=== PATIENT | male | born 1950 | race Caucasian/White ===

== ENCOUNTER → 2018-03-03 09:55 | Outpatient (CLI) | payer MEDICARE, OTHER, SELFPAY | PROVIDERS: PCP Nurse Practitioner; Visit Provider Nurse Practitioner | DX: Z80.42 Family history of malignant neoplasm of prostate (principal); Z53.20 Procedure and treatment not carried out because of patient's decision for unspecified reasons | CPT/HCPCS: 36415; 84153 ==

== ENCOUNTER → 2018-03-18 08:37 | Outpatient (CLI) | payer MEDICARE, OTHER, SELFPAY | PROVIDERS: PCP Nurse Practitioner; Visit Provider Nurse Practitioner | DX: Z12.5 Encounter for screening for malignant neoplasm of prostate (principal); Z53.8 Procedure and treatment not carried out for other reasons | CPT/HCPCS: 36415; 84153 ==

== ENCOUNTER 2018-05-12 01:14 | Outpatient (CLI) | payer MEDICARE, OTHER, SELFPAY ==
[2018-05-13 09:36] LABS: PSA, Screening 2.1 ng/ml (0-4.5)
== END 2018-05-12 01:34 ==
PROVIDERS: PCP Nurse Practitioner; Visit Provider Nurse Practitioner
DX: N40.1 Benign prostatic hyperplasia with lower urinary tract symptoms (principal); N13.8 Other obstructive and reflux uropathy; Z80.42 Family history of malignant neoplasm of prostate; Z12.5 Encounter for screening for malignant neoplasm of prostate
CPT/HCPCS: 36415; 84153

== ENCOUNTER → 2018-12-24 09:24 | Outpatient (BNVA) | payer MEDICARE, OTHER, SELFPAY | PROVIDERS: PCP Nurse Practitioner; Visit Provider Urology | DX: N40.1 Benign prostatic hyperplasia with lower urinary tract symptoms (principal); N13.8 Other obstructive and reflux uropathy | CPT/HCPCS: 99213 ==

== ENCOUNTER 2019-01-06 01:09 | Outpatient (CLI) | payer MEDICARE, OTHER, SELFPAY ==
[2019-01-06 08:53] LABS: HCT 45.7 % (40.0-50.0); HGB 15.6 g/dL (13.5-17.5); Mean Corp. HGB Concentration 34.1 g/dL (32.0-36.0); Mean Corpuscular Hemoglobin 29.9 pg (27.0-33.0); Mean Corpuscular Volume 87.5 fL (80-95); Mean Platelet Volume 9.6 fL (8.0-11.0); Platelet Count 232 x1000/uL (130-400); RBC 5.22 m/cumm (4.50-6.00); RBC Distribution Width 12.9 % (11.8-14.1); White Blood Cell Count 5.23 k/cumm (4.4-10.8)
[2019-01-06 09:48] LABS: ALT 41 U/L (12-78); AST 28 U/L (15-37); Albumin 3.8 g/dL (3.4-5.0); Alkaline Phosphatase 78 U/L (46-116); BUN 22 mg/dL (7-18); Bilirubin, Total 0.8 mg/dL (0.2-1.0); CREATININE 1.03 mg/dL (0.70-1.30); Calcium 8.4 mg/dL (8.5-10.1); Calculated LDL 115; Chloride 104 mmol/L (98-107); Cholesterol 179 mg/dL (50-200); Glucose 91 mg/dL (70-100); HDL Cholesterol 50 mg/dL (40-60); Potassium 4.7 mmol/L (3.5-5.1); Sodium 140 mmol/L (136-145); Total Protein 6.5 g/dL (6.4-8.2); Triglyceride 73 mg/dL (30-150)
[2019-01-07 06:51] LABS: Vitamin D 25 Total 28.9 ng/ml (30-100)
== END 2019-01-06 01:29 ==
PROVIDERS: PCP Nurse Practitioner; Visit Provider Nurse Practitioner
DX: E78.5 Hyperlipidemia, unspecified (principal); K59.00 Constipation, unspecified; R53.83 Other fatigue; M27.9 Disease of jaws, unspecified; M85.80 Other specified disorders of bone density and structure, unspecified site; E55.9 Vitamin D deficiency, unspecified
CPT/HCPCS: 36415; 80053; 80061; 82306; 83721; 85027

== ENCOUNTER 2019-02-04 12:08 | Outpatient (CLI) | payer MEDICARE, OTHER, SELFPAY ==
--- NOTE | 2019-02-04 09:00 | DI.RAD_ITS ---
SYMPTOM/DIAGNOSIS: BILATERAL RIB PAIN, DROPPED WEIGHT BAR ON CHEST R07.81, PLEURODYNIA PA AND LATERAL CHEST, BILATERAL RIBS: There is no evidence of a pneumothorax or pleural effusion. The lungs are well expanded and free of infiltrate. The cardiovascular structures are intact. SUMMARY: Normal chest BILATERAL RIB SERIES: There is no demonstrated right or left rib fracture.
== END 2019-02-04 12:28 ==
PROVIDERS: PCP Nurse Practitioner; Visit Provider Nurse Practitioner
DX: R07.81 Pleurodynia (principal)
CPT/HCPCS: 71046; 71110

== ENCOUNTER 2020-01-17 03:30 | Outpatient (CLI) | payer MEDICARE, OTHER, SELFPAY ==
[2020-01-17 09:56] LABS: ALT 46 U/L (16-63); AST 26 U/L (15-37); Albumin 3.9 g/dL (3.4-5.0); Alkaline Phosphatase 65 U/L (46-116); Anion Gap 7.1 mmol/L (3-11); BUN 19 mg/dL (7-18); Bilirubin, Total 0.7 mg/dL (0.2-1.0); CO2 27.9 mmol/L (21.0-32.0); CREATININE 1.13 mg/dL (0.70-1.30); Calcium 8.8 mg/dL (8.5-10.1); Calculated LDL 119 mg/dL (<100); Chloride 105 mmol/L (98-107); Cholesterol 183 mg/dL (<200); Glucose 91 mg/dL (74-106); HDL Cholesterol 52 mg/dL (40-60); Potassium 4.8 mmol/L (3.5-5.1); Sodium 140 mmol/L (136-145); Total Protein 6.5 g/dL (6.4-8.2); Triglyceride 64 mg/dL (<150)
== END 2020-01-17 03:50 ==
PROVIDERS: PCP Nurse Practitioner; Visit Provider Nurse Practitioner
DX: E78.5 Hyperlipidemia, unspecified (principal)
CPT/HCPCS: 36415; 80053; 80061

== ENCOUNTER → 2020-02-08 13:51 | Outpatient (BNVA) | payer MEDICARE, OTHER, SELFPAY | PROVIDERS: PCP Nurse Practitioner; Referring Provider Nurse Practitioner; Visit Provider Internal Medicine Cardiovascular Disease | DX: I49.3 Ventricular premature depolarization (principal) | CPT/HCPCS: 99204; 99215 ==

== ENCOUNTER 2020-02-09 02:41 | Outpatient (CLI) | payer MEDICARE, OTHER, SELFPAY ==
--- NOTE | 2020-02-09 07:00 | DI.MRI_ITS ---
EXAM: MR LUMBAR SPINE WO CLINICAL HISTORY: LBP, R sciatica, tingling RLE,M54.5,M54.31,M25.50,R53.83,Z83.2. TECHNIQUE: Multiplanar multisequence MRI of the Lumbar spine was performed. COMPARISON: US ABDOMEN ULTRASOUND (P) from 10/16/2017 FINDINGS: Bones: The last intervertebral disc space is designated the L5/S1 level for the numbering purpose of this examination. The vertebral body heights are well maintained. Alignment is satisfactory. Mild d egenerative endplate signal changes at L1-L2, L2-L3 and L4-L5. Small endplate osteophytes at L1-L2. Cord: The conus tip ends at the L1 level. It is of normal size and signal intensity. T12-L1: No disc herniations or bulges are present. No central spinal canal or neural foraminal stenos is. L1-2: Mild diffuse disc bulge. No significant central spinal canal or neural foraminal stenosis. L2-3: Mild diffuse disc bulge. No significant central spinal canal or neural foraminal stenosis. L3-4: No disc herniations or bulges are present. No central spinal canal or neural foraminal stenosis . L4-5: No disc herniations or bulges are present. No central spinal canal or neural foraminal stenosis . L5-S1: No disc herniations or bulges are present. No central spinal canal or neural foraminal stenosi s. Soft tissues: The visualized SI joints and sacrum are well maintained. The paraspinal soft tissues ar e unremarkable. There are several bilateral simple renal cysts. These were present on the abdominal ultrasound from 10/16/2016. IMPRESSION: 1. Mild degenerative changes in the lumbar spine. No significant central spinal canal or neural fora daniel stenosis. 2. Bilateral simple renal cysts. DATA REPOSITORY:
== END 2020-02-09 03:01 ==
PROVIDERS: PCP Nurse Practitioner; Visit Provider Nurse Practitioner
DX: M25.50 Pain in unspecified joint (principal); M54.31 Sciatica, right side; M54.5 Low back pain; R53.83 Other fatigue; Z83.2 Family history of diseases of the blood and blood-forming organs and certain disorders involving the immune mechanism; M47.816 Spondylosis without myelopathy or radiculopathy, lumbar region; N28.1 Cyst of kidney, acquired
CPT/HCPCS: 72148

== ENCOUNTER → 2020-03-13 09:39 | Outpatient (CLI) | payer MEDICARE, OTHER, SELFPAY ==
--- NOTE | 2020-03-13 08:45 | DI.RAD_ITS ---
EXAM: XR SHOULDER RT COMPLETE 2+V CLINICAL HISTORY: R shoulder pain, anterior, +impingement TECHNIQUE: COMPARISON: No exams were available for comparison FINDINGS: Three views were obtained. There are mild hypertrophic degenerative changes of the acromioclavicular joint and mild marginal osteophytes are also noted at the glenohumeral joint. There is soft tissue calcification which appears to be associated with the insertion of the supraspin atus tendon on the humerus, consistent with a calcific peritendinitis. No other significant findings. 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 RADIATION DOSE DELIVERED: Total DLP
== END ==
PROVIDERS: PCP Nurse Practitioner; Referring Provider Nurse Practitioner; Visit Provider Student in an Organized Health Care Education/Training Program
DX: M19.011 Primary osteoarthritis, right shoulder (principal); M77.9 Enthesopathy, unspecified; S43.431A Superior glenoid labrum lesion of right shoulder, initial encounter; X58.XXXA Exposure to other specified factors, initial encounter; M25.511 Pain in right shoulder; M75.41 Impingement syndrome of right shoulder
CPT/HCPCS: 99203; 99214; 73030

== ENCOUNTER 2020-03-14 01:02 | Outpatient (CLI) | payer MEDICARE, OTHER, SELFPAY ==
--- NOTE | 2020-03-14 06:30 | DI.US_ITS ---
APPROVED REPORT EXAM: Comprehensive 2D, Doppler, and color-flow Echocardiogram Patient Location: Out-Patient Title I Math Tutor: Jacy Avila RDCS (AE) Indications: PVC Other Information Study Quality: Good Conclusion Left Ventricle : The left ventricle is normal size. The left ventricular systolic function is normal. The left ventricular ejection fraction is within the normal range. There is normal left ventricular wall thickness. There is normal LV segmental wall motion. The left ventricular diastolic function is normal. LVEF is 63%. Right Ventricle : The right ventricle is normal size. The right ventricular systolic function is norm al. The RVSP is 33.0 mmHg. Atria : The left atrium size is normal. The right atrium size is normal. Mitral Valve : The mitral valve is normal in structure. No evidence of mitral valve stenosis. Mild mi tral regurgitation. Tricuspid Valve : The tricuspid valve is normal in structure. Mild to moderate tricuspid regurgitatio n. There is no tricuspid valve stenosis. Great Vessels : The aortic root is normal in size. The ascending aorta is mildly dilated. Aortic arch is normal in caliber. IVC is normal in size and collapses >50% with inspiration. Wall motion Left Ventricle The left ventricle is normal size. The left ventricular systolic function is normal. The left ventric ular ejection fraction is within the normal range. There is normal left ventricular wall thickness. T here is normal LV segmental wall motion. The left ventricular diastolic function is normal. There is no ventricular septal defect visualized. LVEF is 63%. Right Ventricle The right ventricle is normal size. The right ventricular systolic function is normal. The RVSP is 33 .0 mmHg. Atria The left atrium size is normal. The right atrium size is normal. The interatrial septum is intact wit h no evidence for an atrial septal defect. Aortic Valve The Aortic valve is sclerotic. Aortic valve is trileaflet. There is no aortic valvular stenosis. No a ortic regurgitation is present. Mitral Valve The mitral valve is normal in structure. No evidence of mitral valve stenosis. Mild mitral regurgitat ion. Tricuspid Valve The tricuspid valve is normal in structure. There is no tricuspid valve stenosis. Mild to moderate tr icuspid regurgitation. Pulmonic Valve The pulmonary valve is normal in structure. There is no pulmonic valvular stenosis. Trace pulmonic re gurgitation. Great Vessels The aortic root is normal in size. The ascending aorta is mildly dilated. Aortic arch is normal in ca liber. IVC is normal in size and collapses >50% with inspiration. Pericardium There is no pericardial effusion. 2D Dimensions IVSD d PLAX 1.05 cm M: 0.6-1.2 LV Vol A2C d MOD 105.0 mL LVPW d PLAX 1.06 cm M: 0.6 - 1.2 LV Vol A4C d MOD 119.0 mL LVID d PLAX 4.71 cm M: 4.2 - 5.8 LA vol/ BSA A2C s A-L 32.9 mL/m2 LVDs 2.90 cm M: 2.5 - 4.0 LA vol/ BSA A4C s A-L 27.3 mL/m2 Ao Root d 3.25 cm M: 3.1 - 3.7 LA Vol/ BSA Biplane s A-L 30.6 mL/m2 RA Area A4C 17.99 cm2 LA Area A4C s MOD 19.68 cm2 RA Vol/ BSA A4C s A-L 21.7 mL/m2 LA Area A2C s MOD 21.22 cm2 Ao Asc Diam d 3.50 cm M: 2.6 - 3.4 LV EF A4C MOD 62.4 % LV EF Teichholz 67.8 % LV EF A2C MOD 63.7 % LVEF (Rodriguez's) 63.36 % M: 52 - 72 LV EF Biplane MOD 63.4 % LV Volume 83.84 mL M: 62 - 150 SV 71.53 mL LV Volume Index 40.69 mL/m2 M: 34 - 74 SV Index 34.71 mL/m2 LV Vol Biplane MOD 112.9 mL FS 37.65 % M-Mode TAPSE 2.75 cm (M/F) >1.7 LV Diastology MV E' medial 0.077 (>0.07 m/s) E/A Ratio 1.1 LV E/e MED 9.00 (<14) MV E Vmax 0.70 (0.4-1.3 m/s) MV E' lateral 0.107 (>0.1 m/s) MV A Vmax 0.65 (0.4-1.3 m/s) LV E/e LAT 6.50 (<14) MV E/A Ratio 1.01 MV E/E' medial 9.03 MV E/E' lateral 6.54 Aortic Valve LVOT Area 3.65 cm2 AoV Area Vmax 3.31 cm2 LVOT Vmax 1.23 m/s AoV Area/ BSA (Vmax) 1.60 cm2/m2 LVOT Mean Figueroa. 0.76 m/s KHALIF Mean [place]ueroa. 3.01 cm2 LVOT Peak Grad 6.1 mmHg KHALIF Mean [place]. Index 1.46 cm2/m2 LVOT Mean Grad 2.8 mmHg LVOT VTI 0.282 m LVOT Diam s 2.15 cm AoV Vmax 1.36 m/s Velocity Ratio 0.90 AoV Mean Figueroa. 0.92 m/s AoV Peak Grad 7.4 mmHg LVOT SV 103.06 mL AoV Mean Grad 3.8 mmHg AoV VTI 0.268 m AoV Area VTI 3.84 cm2 AoV Area/ BSA (VTI) 1.86 cm/m2 Mitral Valve MV DT 205 (160-240 msec) MV PHT 59 msec MV Area PHT 3.70 cm2 Pulmonary Valve PV Vmax 1.24 (0.5-1.5 m/s) RVOT Peak Gr. 1.93 mmHg PV Peak Grad 6.2 mmHg RVOT Mean Gr. 1.05 mmHg PV Mean Grad 3.2 mmHg RVOT VTI 0.168 m PV VTI 0.285 m RVOT Vmax 0.69 m/s Tricuspid Valve TR Peak Grad 29.9 mmHg TR Vmax 2.74 m/s RA Pressure 3.00 mmHg RVSP (TR) 33.0 mmHg
== END 2020-03-14 01:22 ==
PROVIDERS: PCP Nurse Practitioner; Visit Provider Internal Medicine Cardiovascular Disease
DX: I49.3 Ventricular premature depolarization (principal); I34.0 Nonrheumatic mitral (valve) insufficiency; R00.2 Palpitations; I47.2 Ventricular tachycardia; I47.1 Supraventricular tachycardia; R00.8 Other abnormalities of heart beat; I49.1 Atrial premature depolarization
CPT/HCPCS: 0296T; 93016; 93306

== ENCOUNTER 2020-03-14 03:48 | Outpatient (CLI) | payer MEDICARE, OTHER, SELFPAY ==
--- NOTE | 2020-04-06 12:26 | ZIOP_ITS ---
Date of service: 04/06/20 Time of Service: 12:26 ZIO Patch Director Of Pediatric Rehabilitation Referring Provider:: Abelardo Indications:: Palps Note: This is a 2-week ZIO patch ordered for indication of palpitations. ?The patient was in normal sinus rhythm for the majority of the recording. ?There are 2 episodes of ventricular tachycardia with the longest lasting 6 beats. ?There were 56 episodes of supraventricular tachycardia with the longest lasting 16 beats at an average rate of 125 bpm. ?There were frequent (10.4%) single ventricular ectopic beats. There was one 2-1/2-minute episode of trigeminy. There were rare PACs. ?There were no episodes of atrial fibrillation, no pauses grade 3 seconds no evidence of high degree heart block. ?Patient triggered events were associated with sinus rhythm and ventricular ectopy.
== END 2020-03-14 04:08 ==
PROVIDERS: PCP Nurse Practitioner; Visit Provider Internal Medicine Cardiovascular Disease
DX: R00.2 Palpitations (principal); I47.2 Ventricular tachycardia; I47.1 Supraventricular tachycardia; R00.8 Other abnormalities of heart beat; I49.3 Ventricular premature depolarization; I49.1 Atrial premature depolarization
CPT/HCPCS: 0296T

== ENCOUNTER 2020-03-15 03:01 | Outpatient (CLI) | payer MEDICARE, OTHER, SELFPAY ==
[2020-03-15 11:25] LABS: HCT 46.6 % (40.0-50.0); HGB 15.6 g/dL (13.5-17.5); MCH 29.4 pg (27.0-33.0); MCHC 33.5 % (32.0-36.0); MCV 87.8 fL (80-95); MPV 9.4 fL (8.0-11.0); Platelet Count 239 10^3/uL (130-400); RBC 5.31 10^6/uL (4.36-5.78); RDW 12.2 % (11.8-14.1); RDW-SD 39.7 fL; WBC 6.36 10^3/uL (4.4-10.8)
[2020-03-15 12:12] LABS: C-Reactive Protein 0.15 mg/dL (0.0-0.3); TSH (W/Ref FT4) 1.72 uIU/mL (0.36-3.74)
[2020-03-15 12:18] LABS: ESR 3 mm/hr (1-20)
[2020-03-15 16:29] LABS: Rheumatoid Factor <8.6 IU/mL (<12.0)
[2020-03-15 17:43] LABS: PSA, Screening 1.6 ng/mL (0.0-4.5)
[2020-03-16 10:49] LABS: Lyme Ab w Rflx to Lyme Confirm Negative (Negative)
[2020-03-16 15:46] LABS: ANA Interpretation Positive (Negative); ANA Titer Pattern 1:80 Homogeneous
[2020-03-17 02:48] LABS: Anaplasma phagocytophilum Negative (Negative); B. miyamotoi PCR Negative (Negative); Babesia divergens/MO-1 Negative (Negative); Babesia duncani Negative (Negative); Babesia microti Negative (Negative); Ehrlichia chaffeensis Negative (Negative); Ehrlichia ewingii/canis Negative (Negative); Ehrlichia muris eauclairensis Negative (Negative)
== END 2020-03-15 03:21 ==
PROVIDERS: PCP Nurse Practitioner; Visit Provider Nurse Practitioner
DX: I49.3 Ventricular premature depolarization (principal); R53.83 Other fatigue; M25.50 Pain in unspecified joint; N13.8 Other obstructive and reflux uropathy; G47.00 Insomnia, unspecified; Z12.5 Encounter for screening for malignant neoplasm of prostate; Z80.42 Family history of malignant neoplasm of prostate; N40.1 Benign prostatic hyperplasia with lower urinary tract symptoms; Z83.2 Family history of diseases of the blood and blood-forming organs and certain disorders involving the immune mechanism
CPT/HCPCS: 84153; 85027; 85652; 87798; 84443; 86038; 86140; 86431; 86618

== ENCOUNTER 2020-04-06 12:00 | Outpatient (CLI) | payer MEDICARE, OTHER, SELFPAY | END 2020-04-06 12:20 | PROVIDERS: PCP Nurse Practitioner; Referring Provider Internal Medicine Cardiovascular Disease; Visit Provider Internal Medicine Cardiovascular Disease | DX: R00.2 Palpitations (principal); I47.1 Supraventricular tachycardia; I47.2 Ventricular tachycardia; I49.8 Other specified cardiac arrhythmias; I49.3 Ventricular premature depolarization; I49.1 Atrial premature depolarization | CPT/HCPCS: 0298T ==

== ENCOUNTER → 2020-05-11 09:38 | Outpatient (BNVA) | payer MEDICARE, OTHER, SELFPAY | PROVIDERS: PCP Nurse Practitioner; Referring Provider Nurse Practitioner; Visit Provider Internal Medicine Cardiovascular Disease | DX: I49.3 Ventricular premature depolarization (principal) | CPT/HCPCS: 99214 ==

== ENCOUNTER 2020-05-16 02:17 | Outpatient (CLI) | payer MEDICARE, OTHER, SELFPAY ==
[2020-05-16 13:32] LABS: Anion Gap 8.4 mmol/L (3-11); BUN 15 mg/dL (7-18); CO2 24.6 mmol/L (21.0-32.0); CREATININE 1.07 mg/dL (0.70-1.30); Calcium 8.7 mg/dL (8.5-10.1); Chloride 105 mmol/L (98-107); Glucose 87 mg/dL (74-106); Potassium 4.4 mmol/L (3.5-5.1); Sodium 138 mmol/L (136-145)
== END 2020-05-16 02:37 ==
PROVIDERS: PCP Nurse Practitioner; Visit Provider Internal Medicine Cardiovascular Disease
DX: I49.3 Ventricular premature depolarization (principal)
CPT/HCPCS: 36415; 80048; 83735

== ENCOUNTER → 2020-10-16 10:34 | Outpatient (BNVA) | payer MEDICARE, OTHER, SELFPAY | PROVIDERS: PCP Nurse Practitioner; Referring Provider Nurse Practitioner; Visit Provider Internal Medicine Cardiovascular Disease | DX: R06.02 Shortness of breath (principal); I49.3 Ventricular premature depolarization | CPT/HCPCS: 99214; 99213 ==

== ENCOUNTER 2020-10-19 02:07 | Outpatient (CLI) | payer MEDICARE, OTHER, SELFPAY ==
--- NOTE | 2020-10-19 07:15 | DI.NM_ITS ---
APPROVED REPORT Exam: Exercise Treadmill Patient Location: Out-Patient Room/Bed: Stress Nurse: Lulu Finley RN Ordering Provider:KAT GIPSON, Contact Number: [phone] BMI: 25.76 Baseline Rhythm: Sinus Rhythm Comment: borderline prolonged MA interval Indications: SOB Medical History Medical History: PVCs, depression, hyperlipidemia, gerd Cardiac Medications: diltiazem, simvastatin, pantoprazole, tadalafil Allergies: tamsulosin Cardiac Risk Factors: Hyperlipidemia Previous Cardiac Procedures: None Pretest Chest Pain Characteristics: None Exercise History: Physically active Physical Disabilities: None Lung Sounds: Clear to auscultation Heart Sounds: Regular Stress Test Details Test: Exercise stress testing was performed using a Ramana protocol. Nuclear Acquisition: Rest Tc-99m/Stress Tc-99m 1 day Rest Isotope: Tc-99m Sestamibi. Dose: 12.3 Date: 10/19/2020 Injection Time: 1000 Stress Isotope: Tc-99m Sestamibi. Dose: 36.7 Date: 10/19/2020 Injection Time: 1138 HR Resting HR Supine: 70 bpm Max Heart Rate (APMHR): 151 bpm Resting HR Standin bpm Target HR (85% APMHR): 128 bpm Max HR Achieved: 160 bpm % of APMHR: 105 Recovery HR: 94 bpm HR response to stress: Normal HR response to stress BP Resting BP Supine: 138/62 mmHg Resting BP Standin/60 mmHg Max BP: 178/66 mmHg Recovery BP: 118/64 mmHg BP response to stress: Normal blood pressure response to stress. ECG Resting ECG: Sinus Rhythm Ectopy: Frequent PVCs, bigeminy Stress ECG: Sinus Tachycardia ST Change: No significant ST segment changes noted Arrhythmia: Frequent PVCs, couplets, Recovery ECG: Sinus Rhythm Recovery ST Change: No significant ST segment changes noted Recovery Arrhythmia: Frequent PVCs, episodes of trigeminy Clinical Reason for Termination: Fatigue Stress Symptoms: General Fatigue, Dyspnea Exercise duration: 10 min01 sec Highest Stage Reached: Stage 4: 4.2 mph at 16% grade. Exercise capacity: 11.84 METs Rate Pressure Product: 71083 Stress ECG Conclusion 1. The patient exercised for 10 minutes (12 METS) 2. Patient no symptoms suggestive of ischemia. 3. Heart rate and blood pressure augmented appropriately. 4. Patient had frequent PVCs but no evidence of ischemia on the ECG portion of the exam. Stress Test Summary STAGE Time (mins) Speed (mph) Grade (%) HR BP SYMPTOMS METS Supine 70 138/62 Standing 70 112/66 1 3 1.7 10 101 4.6 2 6 2.5 12 125 152/62 7 3 9 3.4 14 152 178/66 10.2 1 min recovery 129 3 min recovery 95 154/66 6 min recovery 94 118/64 MPI Conclusion The patient's ejection fraction was 62% with stress. There were no wall motion abnormalities. There was no evidence of ischemia on the imaging portion of the exam. Nurse represents a normal SPECT stress test.
== END 2020-10-19 02:27 ==
PROVIDERS: PCP Nurse Practitioner; Visit Provider Internal Medicine Cardiovascular Disease
DX: R06.02 Shortness of breath (principal); E78.5 Hyperlipidemia, unspecified
CPT/HCPCS: 78452; 93016; 93018; 93017

== ENCOUNTER → 2021-01-16 11:18 | Outpatient (BNVA) | payer MEDICARE, OTHER, SELFPAY | PROVIDERS: PCP Nurse Practitioner; Referring Provider Nurse Practitioner; Visit Provider Internal Medicine Cardiovascular Disease | DX: I49.3 Ventricular premature depolarization (principal); Z79.899 Other long term (current) drug therapy | CPT/HCPCS: 99214; 99213 ==

== ENCOUNTER 2021-03-12 11:29 | Outpatient (CLI) | payer MEDICARE, OTHER, SELFPAY ==
--- NOTE | 2021-03-12 11:15 | RT.EKG_ITS ---
APPROVED REPORT Exam: Resting ECG Reason for Exam: jaw pain with exertion Patient Location: O HR:72 bpm ECG Measurements Heart Rate 72 AXIS MN 192 P 52 QRSd 96 QRS 12 QT 400 T 33 QTc 438 Conclusion Sinus rhythm...normal P axis, V-rate 60- 99 Supraventricular bigeminy...bigeminy string>4 w/ SV complexes Low voltage, extremity leads...all extremity leads <0.5mV
== END 2021-03-12 11:30 | disposition home or self-care (01) ==
LOC: DI.KIM 11:30
PROVIDERS: PCP Nurse Practitioner; Visit Provider Nurse Practitioner
DX: R68.84 Jaw pain (principal); I49.3 Ventricular premature depolarization
CPT/HCPCS: 93010

== ENCOUNTER 2021-03-29 03:08 | Outpatient (CLI) | payer MEDICARE, OTHER, SELFPAY ==
[2021-03-29 09:57] LABS: ALT 44 U/L (16-63); AST 20 U/L (15-37); Albumin 3.8 g/dL (3.4-5.0); Alkaline Phosphatase 90 U/L (46-116); BUN 17 mg/dL (7-18); Bilirubin, Total 0.9 mg/dL (0.2-1.0); CREATININE 1.2 mg/dL (0.70-1.30); Calcium 8.6 mg/dL (8.5-10.1); Calculated LDL 132 mg/dL (<100); Chloride 106 mmol/L (98-107); Cholesterol 193 mg/dL (<200); Glucose 94 mg/dL (74-106); HDL Cholesterol 48 mg/dL (40-60); Potassium 4.7 mmol/L (3.5-5.1); Sodium 142 mmol/L (136-145); Total Protein 6.5 g/dL (6.4-8.2); Triglyceride 66 mg/dL (<150)
[2021-03-29 18:12] LABS: PSA, Screening 2.7 ng/mL (0.0-4.5)
== END 2021-03-29 03:09 | disposition home or self-care (01) ==
LOC: LBO 03:08
PROVIDERS: PCP Nurse Practitioner; Visit Provider Nurse Practitioner
DX: E78.5 Hyperlipidemia, unspecified (principal); Z12.5 Encounter for screening for malignant neoplasm of prostate; N13.8 Other obstructive and reflux uropathy; N40.1 Benign prostatic hyperplasia with lower urinary tract symptoms; Z80.42 Family history of malignant neoplasm of prostate
CPT/HCPCS: 36415; 80053; 80061; 84153

== ENCOUNTER → 2021-08-06 10:20 | Outpatient (BNVA) | payer MEDICARE, OTHER, SELFPAY | PROVIDERS: PCP Nurse Practitioner; Referring Provider Nurse Practitioner; Visit Provider Internal Medicine Cardiovascular Disease | DX: I49.3 Ventricular premature depolarization (principal); Z79.899 Other long term (current) drug therapy | CPT/HCPCS: 99214; 99213 ==

== ENCOUNTER 2021-08-10 01:09 | Outpatient (CLI) | payer MEDICARE, OTHER, SELFPAY ==
--- NOTE | 2021-08-10 08:15 | DI.US_ITS ---
Exam(s) US ABDOMEN EXAM: US ABDOMEN CLINICAL HISTORY: pain after eating, nausea,VOMITING,R11.2,R10.9 TECHNIQUE: Ultrasound abdomen performed using standard protocol. COMPARISON: US ABDOMEN ULTRASOUND (P) from 10/16/2017 MR MR LUMBAR SPINE WO from 02/09/2020 FINDINGS: Exam is somewhat limited by in is cyst the of scanning through the ribs. LIVER: Normal size and echogenicity. No focal liver lesions are seen.. GALLBLADDER: Gallbladder is suboptimally visualized. No evidence of cholelithiasis. No evidence of w all thickening. No pericholecystic fluid identified. MCKENZIE'S SIGN: Negative. BILIARY SYSTEM: Common duct is not well seen. There is question of dilatation of the common duct to left 11 millimeters. KIDNEYS: Kidneys are symmetric in size. No evidence of renal calculi. No evidence of hydronephrosis. No renal mass identified. Some 5 centimeters cyst right kidney. 1.5 centimeter cyst left kidney. 4 millimeter echogenic focus left kidney, question stone versus artifact. PANCREAS: Normal where visualized. SPLEEN: Not enlarged. ABDOMINAL AORTA : Obscured by bowel gas. ASCITES: None seen. IMPRESSION: Limited exam due to patient body habitus. There is apparent mild dilatation of the common bile duct. No gallstones are visualized however the gallbladder is suboptimally imaged. DATA REPOSITORY:
== END 2021-08-10 01:29 ==
PROVIDERS: PCP Nurse Practitioner; Visit Provider Nurse Practitioner
DX: R11.2 Nausea with vomiting, unspecified (principal); R10.84 Generalized abdominal pain; N28.1 Cyst of kidney, acquired; K83.8 Other specified diseases of biliary tract
CPT/HCPCS: 36415; 82784; 83516; 76700

== ENCOUNTER 2021-08-10 01:56 | Outpatient (CLI) | payer MEDICARE, OTHER, SELFPAY ==
[2021-08-13 12:32] LABS: IgA 167 mg/dL (85-499); Interpretation (See Note); Tissue Transglutaminase IgA 1.2 U/mL (<4.0)
== END 2021-08-10 01:57 | disposition home or self-care (01) ==
LOC: LBO 01:57
PROVIDERS: PCP Nurse Practitioner; Visit Provider Nurse Practitioner
DX: K21.9 Gastro-esophageal reflux disease without esophagitis (principal); R10.9 Unspecified abdominal pain
CPT/HCPCS: 36415; 82784; 83516

== ENCOUNTER → 2021-10-19 07:58 | Outpatient (BNVA) | payer MEDICARE, OTHER, SELFPAY | PROVIDERS: PCP Nurse Practitioner; Referring Provider Nurse Practitioner; Visit Provider Urology | DX: N40.1 Benign prostatic hyperplasia with lower urinary tract symptoms (principal); R35.1 Nocturia; N13.8 Other obstructive and reflux uropathy | CPT/HCPCS: 99214 ==

== ENCOUNTER 2021-10-23 04:39 | Outpatient (CLI) | payer MEDICARE, OTHER, SELFPAY ==
[2021-10-23 13:22] LABS: TSH 1.74 uIU/mL (0.36-3.74)
== END 2021-10-23 04:40 | disposition home or self-care (01) ==
PROVIDERS: PCP Nurse Practitioner; Visit Provider Nurse Practitioner Family
DX: K59.00 Constipation, unspecified (principal); R14.0 Abdominal distension (gaseous)
CPT/HCPCS: 36415; 84443

== ENCOUNTER 2021-10-23 15:07 | Outpatient (REF) | payer MEDICARE, OTHER, SELFPAY ==
[2021-10-24 10:33] LABS: Campylobacter PCR Negative (Negative); Salmonella PCR Negative (Negative); Shiga Toxin PCR Negative (Negative); Shigella/Enteroinvasive Ecoli Negative (Negative)
== END 2021-10-23 15:08 | disposition home or self-care (01) ==
LOC: LBN 15:07
PROVIDERS: PCP Nurse Practitioner; Visit Provider Nurse Practitioner Family
DX: K59.00 Constipation, unspecified (principal); R14.0 Abdominal distension (gaseous); Z80.0 Family history of malignant neoplasm of digestive organs
CPT/HCPCS: 87329; 87505

== ENCOUNTER 2022-04-08 03:21 | Outpatient (CLI) | payer MEDICARE, OTHER, SELFPAY ==
[2022-04-08 09:19] LABS: ALT 39 U/L (16-63); AST 19 U/L (15-37); Albumin 3.8 g/dL (3.4-5.0); Alkaline Phosphatase 85 U/L (46-116); Anion Gap 5.6 mmol/L (3-11); BUN 16 mg/dL (7-18); Bilirubin, Total 0.9 mg/dL (0.2-1.0); CO2 31.4 mmol/L (21.0-32.0); CREATININE 1.2 mg/dL (0.70-1.30); Calcium 9.1 mg/dL (8.5-10.1); Calculated LDL 129 mg/dL (<100); Chloride 104 mmol/L (98-107); Cholesterol 197 mg/dL (<200); Estimated GFR 65.06 (mL/min/1.73m2); Glucose 90 mg/dL (74-106); HDL Cholesterol 52 mg/dL (40-60); Potassium 4.9 mmol/L (3.5-5.1); Sodium 141 mmol/L (136-145); Total Protein 7.1 g/dL (6.4-8.2); Triglyceride 84 mg/dL (<150)
== END 2022-04-08 03:22 | disposition home or self-care (01) ==
LOC: LBO 03:21
PROVIDERS: PCP Nurse Practitioner; Visit Provider Nurse Practitioner
DX: E78.5 Hyperlipidemia, unspecified (principal)
CPT/HCPCS: 36415; 80053; 80061

== ENCOUNTER → 2022-04-29 09:24 | Outpatient (BNVA) | payer MEDICARE, OTHER, SELFPAY | PROVIDERS: PCP Nurse Practitioner; Visit Provider Internal Medicine Cardiovascular Disease | DX: I49.3 Ventricular premature depolarization (principal) | CPT/HCPCS: 99213 ==

== ENCOUNTER → 2022-12-24 08:01 | Outpatient (BNVA) | payer MEDICARE, OTHER, SELFPAY | PROVIDERS: PCP Nurse Practitioner; Visit Provider Urology | DX: R39.89 Other symptoms and signs involving the genitourinary system (principal); Z80.42 Family history of malignant neoplasm of prostate; N40.1 Benign prostatic hyperplasia with lower urinary tract symptoms | CPT/HCPCS: 99213 ==

== ENCOUNTER 2023-02-19 03:54 | Outpatient (CLI) | payer MEDICARE, OTHER, SELFPAY ==
[2023-02-20 09:52] LABS: PSA, Diagnostic 3.2 ng/mL (<=6.5)
== END 2023-02-19 03:55 | disposition home or self-care (01) ==
PROVIDERS: PCP Nurse Practitioner; Visit Provider Urology
DX: N13.8 Other obstructive and reflux uropathy (principal); N40.1 Benign prostatic hyperplasia with lower urinary tract symptoms; Z80.42 Family history of malignant neoplasm of prostate
CPT/HCPCS: 36415; 84153

== ENCOUNTER 2023-04-10 04:01 | Outpatient (CLI) | payer MEDICARE, OTHER, SELFPAY ==
[2023-04-10 12:19] LABS: ALT 39 U/L (16-63); AST 23 U/L (15-37); Albumin 3.8 g/dL (3.4-5.0); Alkaline Phosphatase 90 U/L (46-116); Anion Gap 7.9 mmol/L (3-11); BUN 22 mg/dL (7-18); CO2 27.1 mmol/L (21.0-32.0); CREATININE 1.3 mg/dL (0.70-1.30); Calcium 9.3 mg/dL (8.5-10.1); Calculated LDL 118 mg/dL (<100); Chloride 103 mmol/L (98-107); Cholesterol 182 mg/dL (<200); Estimated GFR 58.73 (mL/min/1.73m2); Glucose 93 mg/dL (74-106); HDL Cholesterol 54 mg/dL (40-60); Potassium 4.7 mmol/L (3.5-5.1); Sodium 138 mmol/L (136-145); Total Protein 7.1 g/dL (6.4-8.2); Triglyceride 53 mg/dL (<150)
== END 2023-04-10 04:02 | disposition home or self-care (01) ==
LOC: LBO 04:01
PROVIDERS: PCP Nurse Practitioner; Visit Provider Nurse Practitioner
DX: I49.3 Ventricular premature depolarization (principal); E78.5 Hyperlipidemia, unspecified; F32.89 Other specified depressive episodes; R53.83 Other fatigue; K58.9 Irritable bowel syndrome, unspecified
CPT/HCPCS: 36415; 80053; 80061

== ENCOUNTER 2023-04-28 08:43 | Outpatient (CLI) | payer MEDICARE, OTHER, SELFPAY ==
--- NOTE | 2023-04-28 08:30 | RT.EKG_ITS ---
APPROVED REPORT Exam: Resting ECG Reason for Exam: pvc's Patient Location: O HR:65 bpm ECG Measurements Heart Rate 65 AXIS LA 199 P 38 QRSd 98 QRS 7 QT 412 T 29 QTc 429 Conclusion Sinus rhythm...normal P axis, V-rate 50- 99 Normal Electrocardiogram Baseline wander in lead(s) II,III,aVF
== END 2023-04-28 08:44 | disposition home or self-care (01) ==
LOC: DI.CARD 08:44
PROVIDERS: PCP Nurse Practitioner; Visit Provider Internal Medicine Cardiovascular Disease
DX: I49.3 Ventricular premature depolarization (principal)
CPT/HCPCS: 93010

== ENCOUNTER → 2023-04-28 09:27 | Outpatient (BNVA) | payer MEDICARE, OTHER, SELFPAY | PROVIDERS: PCP Nurse Practitioner; Visit Provider Internal Medicine Cardiovascular Disease | DX: I49.3 Ventricular premature depolarization (principal) | CPT/HCPCS: 93005; 99213 ==

== ENCOUNTER → 2023-12-23 07:54 | Outpatient (BNVA) | payer MEDICARE, OTHER, SELFPAY | PROVIDERS: PCP Nurse Practitioner; Referring Provider Nurse Practitioner; Visit Provider Urology | DX: N40.1 Benign prostatic hyperplasia with lower urinary tract symptoms (principal); N13.8 Other obstructive and reflux uropathy; Z80.42 Family history of malignant neoplasm of prostate | CPT/HCPCS: 99214 ==

== ENCOUNTER 2024-04-02 01:31 | Outpatient (CLI) | payer MEDICARE, OTHER, SELFPAY ==
[2024-04-02 07:17] LABS: HCT 47.4 % (40.0-50.0); MCH 29.7 pg (27.0-33.0); MCHC 33.8 % (32.0-36.0); MCV 88 fL (80-95); MPV 9.1 fL (8.0-11.0); Platelet Count 220 10^3/uL (130-400); RBC 5.38 10^6/uL (4.36-5.78); RDW 12.3 % (11.8-14.1); RDW-SD 39.8 fL; WBC 6.26 10^3/uL (4.4-10.8)
[2024-04-02 07:45] LABS: ALT 37 U/L (16-63); AST 19 U/L (15-37); Albumin 3.6 g/dL (3.4-5.0); Alkaline Phosphatase 82 U/L (46-116); Anion Gap 7.9 mmol/L (3-11); BUN 20 mg/dL (7-18); Bilirubin, Total 0.89 mg/dL (0.2-1.0); CO2 29.1 mmol/L (21.0-32.0); CREATININE 1.2 mg/dL (0.70-1.30); Calcium 8.6 mg/dL (8.5-10.1); Calculated LDL 111 mg/dL (<100); Chloride 105 mmol/L (98-107); Cholesterol 181 mg/dL (<200); Estimated GFR 64.25 (mL/min/1.73m2); Glucose 95 mg/dL (74-106); HDL Cholesterol 55 mg/dL (40-60); Potassium 4.4 mmol/L (3.5-5.1); Sodium 142 mmol/L (136-145); Total Protein 6.6 g/dL (6.4-8.2); Triglyceride 75 mg/dL (<150)
[2024-04-02 19:31] LABS: PSA, Diagnostic 3.6 ng/mL (<=6.5)
== END 2024-04-02 01:32 | disposition home or self-care (01) ==
LOC: LBO 01:31
PROVIDERS: Urology; PCP Nurse Practitioner; Visit Provider Nurse Practitioner
DX: N13.8 Other obstructive and reflux uropathy (principal); N40.1 Benign prostatic hyperplasia with lower urinary tract symptoms; E78.5 Hyperlipidemia, unspecified
CPT/HCPCS: 36415; 80053; 80061; 85027; 84153

== ENCOUNTER 2024-04-23 00:48 | Outpatient (CLI) | payer MEDICARE, OTHER, SELFPAY ==
--- NOTE | 2024-04-23 07:15 | DI.US_ITS ---
Exam(s) US RENAL EXAM: US RENAL CLINICAL HISTORY: kidney cysts large on other imaging,n28.1. TECHNIQUE: Pina scale, color and spectral Doppler were used. COMPARISON: US US ABDOMEN from 08/10/2021 FINDINGS: Right kidney: 10.7cm Echogenicity: Normal Hydronephrosis: No Cyst or mass: Largest cyst mid pole measuring 5.7 cm. Two adjacent 3 centimeter cysts at the lower p ole. Upper pole cyst measuring 2.5 cm. No suspicious masses. Nephrolithiasis: No Left kidney: 13.0cm Echogenicity: Normal Hydronephrosis: No Cyst or mass: 2 centimeter cyst upper pole Nephrolithiasis: 5 millimeter stone mid left kidney. No suspicious masses. Bladder:Normal. Mildly thickened trabeculated wall. No mass or calcification. Both ureteral jets were visualized. Prevoid vol: 373 cc Postvoid vol:98 cc Prostate volume 67 cc enlarged. IMPRESSION: Simple appearing bilateral renal cysts. 5 millimeter nonobstructing stone mid left kidney. Enlarged prostate. Trabeculated bladder wall and elevated postvoid residual. DATA REPOSITORY:
== END 2024-04-23 01:08 ==
LOC: DI 00:48
PROVIDERS: PCP Nurse Practitioner; Visit Provider Nurse Practitioner
DX: N28.1 Cyst of kidney, acquired (principal)
CPT/HCPCS: 76770

== ENCOUNTER 2024-05-27 02:57 | Outpatient (CLI) | payer MEDICARE, OTHER, SELFPAY ==
--- NOTE | 2024-05-27 08:00 | DI.RAD_ITS ---
Exam(s) XR FINGER RT MIDDLE EXAM: XR FINGER RT MIDDLE CLINICAL HISTORY: finger pain PIP joint and middle [id number],R52. TECHNIQUE: 2D digital imaging was performed. Three views. COMPARISON: No exams were available for comparison FINDINGS: BONES: No acute fracture is present. No bony destructive lesion is seen. JOINTS: No dislocation present. Mild degenerative changes of the interphalangeal joints. SOFT TISSUE: Normal. IMPRESSION: Mild degenerative changes. No acute abnormality. DATA REPOSITORY: RADIATION DOSE DELIVERED:
== END 2024-05-27 03:17 ==
LOC: DI 02:57
PROVIDERS: PCP Nurse Practitioner; Visit Provider Physician Assistant
DX: M19.041 Primary osteoarthritis, right hand (principal)
CPT/HCPCS: 73140

== ENCOUNTER → 2024-12-21 07:59 | Outpatient (BNVA) | payer MEDICARE, OTHER, SELFPAY | PROVIDERS: PCP Nurse Practitioner; Visit Provider Urology | DX: N40.1 Benign prostatic hyperplasia with lower urinary tract symptoms (principal); N13.8 Other obstructive and reflux uropathy | CPT/HCPCS: 99214 ==

== ENCOUNTER 2025-04-21 12:55 | Outpatient (CLI) | payer MEDICARE, OTHER, SELFPAY ==
--- NOTE | 2025-04-21 12:45 | RT.EKG_ITS ---
APPROVED REPORT Exam: Resting ECG Reason for Exam: hyperlipidemia Patient Location: O HR:67 bpm ECG Measurements Heart Rate 67 AXIS NC 190 P 35 QRSd 96 QRS -3 QT 399 T 31 QTc 422 Conclusion Sinus rhythm...normal P axis, V-rate 50- 99 Low voltage, precordial leads...precordial leads <1.0mV Otherwise normal ECG
== END 2025-04-21 12:56 | disposition home or self-care (01) ==
LOC: DI.CARD 12:58
PROVIDERS: Visit Provider Internal Medicine Cardiovascular Disease
DX: E78.5 Hyperlipidemia, unspecified (principal)
CPT/HCPCS: 93010

== ENCOUNTER → 2025-04-21 12:55 | Outpatient (BNVA) | payer MEDICARE, OTHER, SELFPAY | PROVIDERS: Visit Provider Internal Medicine Cardiovascular Disease | DX: I49.3 Ventricular premature depolarization (principal); E78.5 Hyperlipidemia, unspecified | CPT/HCPCS: 99213; 93005 ==

== ENCOUNTER 2025-04-28 04:15 | Outpatient (CLI) | payer MEDICARE, OTHER, SELFPAY ==
[2025-04-28 08:53] LABS: Anion Gap 7.6 mmol/L (3-11); BUN 17 mg/dL (7-18); CO2 29.4 mmol/L (21.0-32.0); Calcium 8.9 mg/dL (8.5-10.1); Calculated LDL 105 mg/dL (<100); Chloride 104 mmol/L (98-107); Cholesterol 169 mg/dL (<200); Estimated GFR 63.46 (mL/min/1.73m2); Glucose 91 mg/dL (74-106); HDL Cholesterol 52 mg/dL (>or=40); Potassium 4.4 mmol/L (3.5-5.1); Sodium 141 mmol/L (136-145); Triglyceride 62 mg/dL (<150)
[2025-04-28 19:28] LABS: PSA, Screening 3.6 ng/mL (<=6.5)
== END 2025-04-28 04:16 | disposition home or self-care (01) ==
LOC: LBO 04:15
DX: E78.5 Hyperlipidemia, unspecified (principal); Z00.00 Encounter for general adult medical examination without abnormal findings; N13.8 Other obstructive and reflux uropathy; N40.1 Benign prostatic hyperplasia with lower urinary tract symptoms; Z80.42 Family history of malignant neoplasm of prostate
CPT/HCPCS: 36415; 80048; 80061; 84153